=== PATIENT | male | born 2005 | race Caucasian/White ===

== ENCOUNTER 2024-04-24 10:29 | Day surgery (SDC) | payer OTHER ==
[2024-04-24] MEDS ORDERED: Propofol 200 MG/20 ML SDV ONE (10:58)
[2024-04-24] MEDS ORDERED: ceFAZolin 2 GM Vial ONE (10:58)
[2024-04-24] MEDS ORDERED: dexmedeTOMIDine HCl 200 MCG/2 ML SDV ONE (10:58)
[2024-04-24] MEDS ORDERED: Ketorolac 30 MG/ML SDV ONE (10:58)
[2024-04-24] MEDS ORDERED: Ondansetron 4 MG/2 ML SDV ONE (10:58)
[2024-04-24] MEDS ORDERED: Dexamethasone 4 MG/ML 5 ML MDV ONE (10:58)
[2024-04-24] MEDS ORDERED: Rocuronium 50 MG/5 ML Vial ONE (10:58)
[2024-04-24] MEDS ORDERED: Midazolam 1 MG/ML 2 ML SDV ONE (10:58)
[2024-04-24] MEDS ORDERED: fentaNYL 250 MCG/5 ML SDV ONE (10:58)
[2024-04-24] MEDS ORDERED: Lidocaine 1% 4 ML ONE (10:59)
[2024-04-24] MEDS: Lactated Ringers 1,000 ML IV SCH (11:30)
[2024-04-24] MEDS ORDERED: Lactated Ringers 1,000 ML ONE (11:37)
[2024-04-24] MEDS ORDERED: Sodium Chloride 0.9% 10 ML Syringe FLUSH PRN (11:40)
[2024-04-24] MEDS ORDERED: Sodium Chloride 0.9% 10 ML Syringe FLUSH SCH (11:45)
[2024-04-24] MEDS ORDERED: Sugammadex Sodium 200 MG/2 ML VIAL IV ONE (12:08)
[2024-04-24] MEDS ORDERED: fentaNYL 100 MCG/2 ML SDV IVPUSH PRN (12:19)
[2024-04-24] MEDS ORDERED: Ondansetron 4 MG/2 ML SDV IVPUSH PRN (12:19)
[2024-04-24] MEDS ORDERED: HYDROmorphone 0.5 MG/0.5 ML Syringe IVPUSH PRN (12:19)
[2024-04-24] MEDS: EPINEPHrine 1 MG/ML SDV ONE (12:48)
[2024-04-24] MEDS: Bupivacaine 0.5% 30 ML SDV ONE (12:48)
== END 2024-04-24 14:57 | disposition home or self-care (01) ==
LOC: JD.SDS 10:29
PROVIDERS: ATTEND Surgery
DX: R10.30 Lower abdominal pain, unspecified (principal); K21.9 Gastro-esophageal reflux disease without esophagitis; F98.8 Other specified behavioral and emotional disorders with onset usually occurring in childhood and adolescence; Z79.899 Other long term (current) drug therapy; Z88.0 Allergy status to penicillin
CPT/HCPCS: 49320; J0171; J0665; J0690; J1100; J1885; J2250; J2405; J2704; J3010; J3490; J7120

== ENCOUNTER 2024-10-28 21:17 | Emergency (ER) | payer OTHER ==
[2024-10-29] MEDS ORDERED: Ketorolac 30 MG/ML SDV ONE (02:06)
[2024-10-29 05:48] LABS: ANION GAP 11.7 (5-15); POTASSIUM,K 3.7 mEq/L (3.5-5.1)
[2024-10-29 05:49] LABS: A/G RATIO 1.2 (1-2); BILIRUBIN TOTAL 0.3 mg/dL (0.2-1.0); CALCIUM 9.2 mg/dL (8.5-10.1); CREATININE 1.5 mg/dL (0.7-1.3); EST CRCL DRUG DOSING (CG) 77.9 mL/min; PROTEIN TOTAL,TP 7.3 g/dl (6.4-8.2)
[2024-10-29 05:55] LABS: APPEARANCE,URINE CLEAR (Clear); BILIRUBIN,URINE NEGATIVE (Negative); COLOR,URINE YELLOW (Yellow); GLUCOSE,URINE NEGATIVE (Negative); KETONES,URINE NEGATIVE (Negative); OCCULT BLOOD,URINE NEGATIVE (Negative); PROTEIN,URINE TRACE (Negative); UROBILINOGEN,URINE 0.2 (0.2-1.0)
[2024-10-29 05:56] LABS: BASOPHILS ABSOLUTE AUTO 0.1 K/mm3 (0.0-0.2); BASOPHILS PERCENT AUTO 1.5 % (0.0-1.0); EOSINOPHILS ABSOLUTE AUTO 0.1 K/mm3 (0.0-0.4); EOSINOPHILS PERCENT AUTO 3.7 % (0.0-6.0); HEMATOCRIT 42.4 % (42.0-52.0); HEMOGLOBIN 15.9 gm/dl (14.0-18.0); IMMATURE GRAN ABSOLUTE AUTO 0.01 K/mm3 (0.00-0.05); IMMATURE GRAN PERCENT AUTO 0.3 % (0.0-0.4); LEUKOCYTE ESTERASE,URINE NEGATIVE (Negative); LYMPHOCYTES PERCENT AUTO 30.2 % (24.0-44.0); MEAN CORPUSCULAR HEMOGLOBIN 31.1 pg (28.0-32.0); MEAN CORPUSCULAR HGB CONC 37.5 g/dl (32.0-36.0); MEAN CORPUSCULAR VOLUME 82.8 fl (83.0-99.0); MEAN PLATELET VOLUME 10.5 fl (9.4-12.4); MONOCYTES ABSOLUTE AUTO 0.7 K/mm3 (0.0-0.8); MONOCYTES PERCENT AUTO 20.4 % (0.0-8.0); NEUTROPHILS ABSOLUTE AUTO 1.4 K/mm3 (1.8-7.7); NEUTROPHILS PERCENT AUTO 43.9 % (41.0-71.0); NITRITE,URINE NEGATIVE (Negative); PLATELET COUNT,PLT 280 K/mm3 (150-400); RED BLOOD CELL COUNT 5.12 M/mm3 (4.52-5.90); SLIDE REVIEW ABNORMAL SMEAR; WHITE BLOOD CELL COUNT,WBC 3.28 K/mm3 (3.9-11.3)
== END 2024-10-29 03:35 | disposition home or self-care (01) ==
LOC: JD.ED 21:17
DX: S33.9XXA Sprain of unspecified parts of lumbar spine and pelvis, initial encounter (principal); Z88.0 Allergy status to penicillin; Z79.899 Other long term (current) drug therapy; Z90.49 Acquired absence of other specified parts of digestive tract; X58.XXXA Exposure to other specified factors, initial encounter
CPT/HCPCS: 36415; 80053; 81003; 85025; 87040; 96372; 99283